=== PATIENT | male | born 1995 | race Caucasian/White ===

== ENCOUNTER 2018-11-24 07:37 | Day surgery (SDC) | payer OTHER ==
[~2018-11-24] VITALS: Ht 185.4 cm; Wt 85.2 kg
[~2018-11-24 07:37] MED LIST: IV ANTIBIOTIC; [UNRECOGNIZED DRUG - OTHER] IV
--- NOTE | 2018-11-24 10:25 | NUR ---
11/24/18 1025 Conner Suarez LATE ENTRY: RECEIVED REPORT FROM BRUCE ALBERTO @ 1010.
== END 2018-11-24 10:25 | disposition home or self-care (01) ==
LOC: ORSCSDS 07:37
PROVIDERS: Otolaryngology
PROC: 0CBPXZZ Excision of Tonsils, External Approach (ICD-10-PCS; principal; 2018-11-24 09:00)
DX: J35.01 Chronic tonsillitis (principal); J45.909 Unspecified asthma, uncomplicated
CPT/HCPCS: 88304; J0330; J1100; J2250; J2405; J2704; J3010; J7120